=== PATIENT | female | born 1980 | race Caucasian/White ===

== ENCOUNTER 2016-12-21 22:59 | Observation (INO) | payer OTHER ==
[2016-12-22] MEDS ORDERED: PROMETHAZINE HCL 25 MG TAB PO ONE (02:30)
--- NOTE | 2016-12-22 10:57 | OBPROG ---
OBG Progress Note Assessment/Plan: Assessment:+ movement cat1 fhr pain well managed after morphine irregular non painful contractions discussed choices in POC home to await regular contractions. Stay for IOL. R/B/A Plan:discharge to home with instructions. Will return for fu on saturday to the office 12/22/16 10:56 Subjective: I feel irregular contractions. + movement. Next appt in the office on saturday. Denies leaking of fluid. No bloody show. Feeling better after resting. - SVE Dilation (cm): 1 Effacement (%): 100 Station: 0 Current Contraction Pattern: Irregular FHR (bpm): 125 FHR Pattern Variability: Moderate FHR Category: 1 Membranes: Intact ICD10 Worksheet Patient Problems: Problems Problem Status Onset morphine sleep r/o labor Acute
== END 2016-12-22 11:10 | disposition home or self-care (01) ==
LOC: FLD 22:59
PROVIDERS: ADMIT Obstetrics & Gynecology; ATTEND Obstetrics & Gynecology
DX: O47.1 False labor at or after 37 completed weeks of gestation (principal); Z3A.40 40 weeks gestation of pregnancy
CPT/HCPCS: G0378

== ENCOUNTER 2016-12-23 07:02 | Inpatient (IN) | payer OTHER ==
--- NOTE | 2016-12-23 07:16 | OBPROG ---
OBG Progress Note Assessment/Plan: Assessment: cat1 pain fair managed + bloody show bag of water intact request for epidural for pain relief jovanna q3-7 minutes apart Plan:admit , request for epidural for pain releif 12/23/16 07:14 Subjective: Coping fair. - SVE Dilation (cm): 5 Effacement (%): 100 Station: 0 Current Contraction Pattern: Regular FHR (bpm): 125 FHR Pattern Variability: Moderate FHR Category: 1 Membranes: Intact - Physical Exam General Appearance: WD/WN, alert, no apparent distress Respiratory: chest non-tender, lungs clear, normal breath sounds Cardiac/Chest: regular rate, rhythm Abdomen: normal bowel sounds Membranes: Intact Extremities: normal range of motion, Mariaa's sign (negative bilaterally) DTR- Lower Extremities: Knee (R): 1+ (no clonus bilaterally), Knee (L): 1+ Skin: normal color, warm/dry Neuro/Psych: no motor/sensory deficits, alert, normal mood/affect, oriented x 3 ICD10 Worksheet Patient Problems: Problems Problem Status Onset term labor Acute
[2016-12-23] MEDS ORDERED: OLIVE OIL 118 ML BTL MISC PRN (07:17)
[2016-12-23] MEDS ORDERED: LIDOCAINE 1% 30 ML SDV SC PRN (07:17)
[2016-12-23] MEDS ORDERED: EPSOM SALT 454 GM TP PRN (07:17)
[2016-12-23] MEDS ORDERED: TERBUTALINE SULFATE 1 MG/ML VIAL IV PRN (07:17)
[2016-12-23] MEDS ORDERED: OXYTOCIN/RINGERS LACTATE 1,000 ML IV PRN (07:17)
[2016-12-23] MEDS ORDERED: LR 1,000 ML IV PRN (07:17)
[2016-12-23] MEDS ORDERED: MISOPROSTOL 200 MCG TAB ONE (07:28)
[2016-12-23 07:31] LABS: % IMMATURE GRANULYOCYTES 0.7 % (0.0-1.1); ADD DIFF? NO; ADD MORPH? NO; ADD SCAN? NO; ATYPICAL LYMPHOCYTE FLAG 0 (0-99); FRAGMENT RBC FLAG 0 (0-99); HEMATOCRIT 40.5 % (38.0-47.0); HEMOGLOBIN 13.8 g/dL (12.6-16.3); LEFT SHIFT FLG 0 (0-99); LIPEMIA HEMOLYSIS FLAG 90 (0-99); MEAN CELL HEMOGLOBIN 29.4 pg (27.9-34.1); MEAN CELL HEMOGLOBIN CONCENTR. 34.1 g/dL (32.4-36.7); MEAN CELL VOLUME 86.4 fL (81.5-99.8); MEAN PLATELET VOLUME 12.8 fL (8.7-11.7); PLATELET CLUMPS FLAG 0 (0-99); PLATELET COUNT 240 10^3/uL (150-400); RED BLOOD CELL COUNT 4.69 10^6/uL (4.18-5.33); RED CELL DISTRIBUTION WIDTH 13.3 % (11.5-15.2)
[2016-12-23] MEDS ORDERED: BUPIVACAINE 0.25% 30 ML SDV ONE (07:51)
[2016-12-23] MEDS ORDERED: PHENYLEPHRINE HCL 100 MCG/ML SYR ONE (07:51)
[2016-12-23] MEDS ORDERED: fentaNYL 2MCG/ML/BUP 0.1% RTU 100 ML BAG EP ONE ×2 (07:51→18:34)
[2016-12-23] MEDS ORDERED: LR 500 ML IV SCH (08:30)
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
--- NOTE | 2016-12-23 10:40 | OBPROG ---
OBG Progress Note Assessment/Plan: Assessment: 36 y/o @ 40 5/7 weeks in labor Plan: Pt continues to make progress and now just had SROM, with observe closely and check in 2 hours. Continue expectant labor management. 12/23/16 10:38 Subjective: Pt is now comfortable with her epidural and is resting. Objective: 12/23/16 07:25 Patient ABO/Rh O POSITIVE 12/23/16 07:25 - SVE Dilation (cm): 6 Effacement (%): 100 Station: 0 Current Contraction Pattern: Regular (Q 4-5) FHR (bpm): 130 FHR Pattern Variability: Moderate FHR Category: 1 Membranes: SROM Amniotic Fluid Color: Clear ICD10 Worksheet Patient Problems: Problems Problem Status Onset term labor Acute
[2016-12-23] MEDS ORDERED: LR 500 ML IV PRN (12:40)
--- NOTE | 2016-12-23 12:42 | OBPROG ---
OBG Progress Note Assessment/Plan: Assessment: 36 y/o @ 40 5/7 weeks in labor Plan: Pt's contractions have now slowed and she hasn't made progress for 2 hours. Will begin pitocin augmentation now. 12/23/16 10:38 12/23/16 12:41 Subjective: Pt is doing well comfortable with her epidural. Objective: 12/23/16 07:25 Patient ABO/Rh O POSITIVE 12/23/16 07:25 - SVE Dilation (cm): 6 Effacement (%): 100 Station: 0 Current Contraction Pattern: Regular (irreg Q 8) FHR (bpm): 140 FHR Pattern Variability: Moderate FHR Category: 1 Membranes: SROM Amniotic Fluid Color: Clear ICD10 Worksheet Patient Problems: Problems Problem Status Onset term labor Acute
[2016-12-23] MEDS ORDERED: OXYTOCIN/RINGERS LACTATE 500 ML IV SCH (13:00)
[2016-12-23] MEDS ORDERED: ONDANSETRON 4 MG/2 ML VIAL IVP PRN (16:44)
--- NOTE | 2016-12-23 16:46 | OBPROG ---
OBG Progress Note Assessment/Plan: Assessment: 36 y/o @ 40 5/7 weeks in labor Plan: Good cervical progression, pt will begin pushing. status is reassuring. 12/23/16 10:38 12/23/16 12:41 12/23/16 16:45 Subjective: Pt is beginning to feel pelvic pressure and the urge to push. Objective: 12/23/16 07:25 Patient ABO/Rh O POSITIVE 12/23/16 07:25 - SVE Dilation (cm): 10 Effacement (%): 100 Station: +2 Current Contraction Pattern: Regular (Q 4) FHR (bpm): 120 FHR Pattern Variability: Moderate FHR Category: 1 Membranes: SROM Amniotic Fluid Color: Clear ICD10 Worksheet Patient Problems: Problems Problem Status Onset term labor Acute
[2016-12-23] MEDS ORDERED: HYDROCORTISONE 0.5% CREAM TP PRN (19:43)
[2016-12-23] MEDS ORDERED: SIMETHICONE 80 MG TAB CHEW PO PRN (19:43)
[2016-12-23] MEDS ORDERED: ACETAMINOPHEN 325 MG TAB PO PRN (19:43)
[2016-12-23] MEDS ORDERED: HYDROCODONE/APAP 5/325 TAB PO PRN (19:43)
--- NOTE | 2016-12-23 19:43 | OBPROC ---
- Labor and Delivery Onset of Contractions Date: 12/23/16 Onset of Contractions Time: 07:30 Onset of Contractions Type: Augmented Rupture of Membranes Date: 12/23/16 Rupture of Membranes Time: 10:36 Rupture of Membranes Type: Spontaneous Amniotic Fluid Color: Clear Dilation Complete Time: 16:25 Delivery Type: Spontaneous Placenta Delivery Date: 12/23/16 Placenta Delivery Time: 19:24 Episiotomy/Laceration: 2nd Degree, Perineal Repair: 2-0, Vicryl EBL: 200 Complications: Nuchal Cord - Medications Labor Augmentation/Induction Meds Used: Pitocin Labor Augmentation/Induction Indication: Other (Specify) (inadequate contraction strength and frequency) Anesthesia: Epidural, Local (Specify) (1% lidocaine) - [place] Info A Delivery Date: 12/23/16 Delivery Time: 19:20 Sex of Infant: Male Score (1 Min): 8 Score (5 Min): 8
[2016-12-24] MEDS: IBUPROFEN 600 MG TAB PO PRN ×2 (00:52→19:25)
[2016-12-24] MEDS: DOCUSATE SODIUM 100 MG CAP PO PRN ×2 (09:03→20:54)
--- NOTE | 2016-12-24 09:05 | SOAPPROG ---
SOAP Progress Note Assessment/Plan: Assessment: well nipples intact pain well managed vs wnl ff@u scant rubra lochia voiding without difficulty perineum approximated some swelling discussed ways to assist Plan:pp expectant management 12/23/16 07:14 12/24/16 09:03 Objective: Vital Signs Temp Pulse Resp BP Pulse Ox 36.1 C 70 17 95/61 L 96 12/24/16 08:15 12/24/16 08:15 12/24/16 08:15 12/24/16 08:15 12/24/16 08:15 Laboratory Results 12/23/16 07:25 12/23/16 12/24/16 12/25/16 05:59 05:59 05:59 Output Total 200 Balance -200 - Time Spent With Patient Time Spent With Patient: 15 minutes - Pending Discharge Pending Discharge Within 24 Hours: Yes Pending Discharge Date: 12/25/16 Pending Discharge Time: 11:00 ICD10 Worksheet Patient Problems: Problems Problem Status Onset term labor Acute
[2016-12-24] MEDS ORDERED: METHYLERGONOVINE MAL 0.2 MG/ML INJ ONE (09:43)
[2016-12-24 19:10] VITALS: O2SAT 95
--- NOTE | 2016-12-24 19:23 | SOAPPROG ---
SOAP Progress Note Assessment/Plan: Assessment: well nipples intact has declined ibuprofen to assist with pain discussed pain relief with patient vs wnl ff@u scant rubra lochia voiding without difficulty perineum approximated some swelling discussed ways to assist complaint of blurred vision intermittantly vs wnl denies other difficulties reassessment no difficulties reassured all ok Plan:pp expectant management 12/23/16 07:14 12/24/16 09:03 12/24/16 19:20 Subjective: complaint of blurry vision Objective: Vital Signs Temp Pulse Resp BP Pulse Ox 36.5 C 64 64 H 116/72 95 12/24/16 19:08 12/24/16 19:08 12/24/16 19:08 12/24/16 19:08 12/24/16 19:08 Laboratory Results 12/23/16 07:25 12/23/16 12/24/16 12/25/16 05:59 05:59 05:59 Output Total 200 Balance -200 Physical Exam - Physical Exam General Appearance: WD/WN, alert, no apparent distress Respiratory: chest non-tender, lungs clear, normal breath sounds Cardiac/Chest: regular rate, rhythm Abdomen: normal bowel sounds, other (FF@U) Pelvic Exam: vaginal bleeding (SCANT RUBRA LOCHIA) Skin: normal color, warm/dry Extremities: normal range of motion, Mariaa's sign (NEGATIVE BILATERALLY), other (DTRS 1+ BILATERALLY) Neuro/Psych: no motor/sensory deficits, alert, normal mood/affect, oriented x 3 ICD10 Worksheet Patient Problems: Problems Problem Status Onset term labor Acute
--- NOTE | 2016-12-25 07:50 | OBPROG ---
OBG Progress Note Assessment/Plan: Assessment: s/p PPD #2 - pt is stable Plan: Plan for d/c home today Instructions reviewed with pt No Rx Cont PNV Pelvic rest RTC 4 and 6 weeks for pp visit 12/25/16 07:48 Subjective: Pt seen and examined. Doing well with no complaints. Minimal cramping. Moderate lochia. Pt debbie regular diet, voiding and small BM x 1. without difficulty. Objective: 12/23/16 07:25 Patient ABO/Rh O POSITIVE 12/23/16 07:25 Temp Pulse Resp BP Pulse Ox 36.0 C 77 16 106/76 95 12/25/16 02:00 12/25/16 02:00 12/25/16 02:00 12/25/16 02:00 12/24/16 19:08 - SVE Station: +2 Uterine Position/Fundal Height: Umbilicus -2 Uterine Tone: Firm - Physical Exam General Appearance: WD/WN, alert, no apparent distress Respiratory: lungs clear, normal breath sounds Cardiac/Chest: regular rate, rhythm Abdomen: normal bowel sounds, non-tender, soft, flatus (+) Genitourinary: laceration (intact), lochia (moderate) Extremities: non-tender, normal inspection Neuro/Psych: alert, normal mood/affect, oriented x 3 ICD10 Worksheet Patient Problems: Problems Problem Status Onset (spontaneous vaginal delivery) Acute term labor Acute
[2016-12-25] MEDS: IBUPROFEN 600 MG TAB PO PRN (08:27)
[2016-12-25 10:50] VITALS: BP 111/16; PULSE 88; RESP 18; TEMP 97.7
== END 2016-12-25 16:30 | disposition home or self-care (01) | DRG 775 ==
LOC: OBSVTOIN 07:02 → FLD 07:02 → FOB 20:49
PROVIDERS: ADMIT Advanced Practice Midwife; ATTEND Obstetrics & Gynecology
DX: O70.1 Second degree perineal laceration during delivery (principal); O69.81X0 Labor and delivery complicated by cord around neck, without compression, not applicable or unspecified; Z3A.40 40 weeks gestation of pregnancy; Z37.0 Single live birth
CPT/HCPCS: J2210; J2370; J2405; J2590

== ENCOUNTER → 2017-01-15 | Outpatient (CLI) | payer OTHER | LOC: FLACT 10:06 | PROVIDERS: ATTEND Obstetrics & Gynecology | DX: Z39.1 Encounter for care and examination of lactating mother (principal); N64.59 Other signs and symptoms in breast | CPT/HCPCS: G0463 ==

== ENCOUNTER → 2017-02-19 | Outpatient (CLI) | payer OTHER | LOC: FLACT 10:15 | PROVIDERS: ATTEND Obstetrics & Gynecology | DX: Z39.1 Encounter for care and examination of lactating mother (principal) | CPT/HCPCS: G0463 ==